=== PATIENT | male | born 1965 | race Caucasian/White ===

== ENCOUNTER 2023-03-07 09:08 | Outpatient (RCR) | payer BC, SELFPAY | END 2023-03-08 09:09 | disposition home or self-care (01) | LOC: RPT 09:08 | PROVIDERS: ATTENDING PHYSICIAN Physician Assistant Medical; FAMILY PHYSICIAN Family Medicine | DX: S46.012D Strain of muscle(s) and tendon(s) of the rotator cuff of left shoulder, subsequent encounter (principal); S46.212D Strain of muscle, fascia and tendon of other parts of biceps, left arm, subsequent encounter; M75.41 Impingement syndrome of right shoulder; Z73.6 Limitation of activities due to disability ==

== ENCOUNTER → 2023-09-19 08:51 | Outpatient (REF) | payer BC, SELFPAY | LOC: RCS 08:51 | PROVIDERS: ATTENDING PHYSICIAN Orthopaedic Surgery; FAMILY PHYSICIAN Family Medicine | DX: Z01.818 Encounter for other preprocedural examination (principal) | CPT/HCPCS: 93005 ==

== ENCOUNTER 2023-09-22 06:28 | Day surgery (SDC) | payer BC, SELFPAY ==
[2023-09-22] VITALS (9 sets, daily range): BP systolic 125–167; BP diastolic 92–104; BMI 29.0
[2023-09-22] MEDS: CELEBREX 200 MG PO (11:29)
[2023-09-22] MEDS: TYLENOL 1000 MG PO (11:30)
[2023-09-22] MEDS: NORMOSOL-R 1000 IV (11:31)
== END 2023-09-22 16:14 | disposition home or self-care (01) ==
LOC: SDS 06:28
PROVIDERS: ATTENDING PHYSICIAN Orthopaedic Surgery
DX: M75.101 Unspecified rotator cuff tear or rupture of right shoulder, not specified as traumatic (principal); M25.511 Pain in right shoulder
CPT/HCPCS: 29827; 29823

== ENCOUNTER 2023-10-24 10:31 | Outpatient (RCR) | payer BC, SELFPAY | END 2023-10-24 23:59 | disposition home or self-care (01) | LOC: RPT 10:31 | PROVIDERS: ATTENDING PHYSICIAN Physician Assistant Medical; FAMILY PHYSICIAN Family Medicine | DX: Z47.89 Encounter for other orthopedic aftercare (principal); M24.111 Other articular cartilage disorders, right shoulder; Z73.6 Limitation of activities due to disability | CPT/HCPCS: 97010; 97110; 97140; 97161 ==

== ENCOUNTER 2023-11-21 16:54 | Outpatient (RCR) | payer BC, SELFPAY | END 2023-11-21 23:59 | disposition home or self-care (01) | LOC: RPT 16:54 | PROVIDERS: ATTENDING PHYSICIAN Physician Assistant Medical; FAMILY PHYSICIAN Family Medicine | DX: M75.121 Complete rotator cuff tear or rupture of right shoulder, not specified as traumatic (principal); M24.111 Other articular cartilage disorders, right shoulder; Z73.6 Limitation of activities due to disability | CPT/HCPCS: 97010; 97110; 97112; 97140 ==

== ENCOUNTER 2023-12-14 07:01 | Outpatient (RCR) | payer BC, SELFPAY | END 2023-12-14 10:40 | disposition home or self-care (01) | LOC: RPT 07:01 | PROVIDERS: ATTENDING PHYSICIAN Physician Assistant Medical; FAMILY PHYSICIAN Family Medicine | DX: Z47.89 Encounter for other orthopedic aftercare (principal); Z73.6 Limitation of activities due to disability; Z98.890 Other specified postprocedural states | CPT/HCPCS: 97010; 97110; 97112 ==